=== PATIENT | male | born 1975 | race American Indian/Alaskan Native ===

== ENCOUNTER 2018-05-24 08:45 | Emergency (ER) | payer OTHER ==
[2018-05-24] MEDS ORDERED: ZOFRAN IV ONE (09:39)
[2018-05-24] MEDS ORDERED: TORADOL IV ONE (09:39)
[2018-05-24] MEDS ORDERED: NACL 0.9% 1000 ML 1,000 ML IV ONE (09:39)
[2018-05-24 10:02] LABS: Basophils # (Auto) 0.1 K/mm3 (0.0-0.1); Basophils % (Auto) 0.6 % (0.0-1.8); Eosinophils # (Auto) 0.1 K/mm3 (0.0-0.4); Eosinophils % (Auto) 0.8 % (0.0-4.3); Hematocrit 48.8 % (30.3-42.9); Hemoglobin 15.9 gm/dl (10.1-14.3); Lymphocytes # (Auto) 1.9 K/mm3 (1.2-5.4); Mean Corpuscular HGB Conc 33 % (30-34); Mean Corpuscular Volume 84 fl (79-97); Monocytes # (Auto) 0.9 K/mm3 (0.0-0.8); Monocytes % (Auto) 7.2 % (0.0-7.3); Platelet Count 256 K/mm3 (140-440); Red Blood Count 5.78 M/mm3 (3.65-5.03); Red Cell Distribution Width 14.7 % (13.2-15.2)
[2018-05-24 10:15] LABS: Alanine Aminotransferase 51 units/L (7-56); Albumin 4.2 g/dL (3.9-5); BUN/Creatinine Ratio 10; Blood Urea Nitrogen 8 mg/dL (7-17); Calcium 9.7 mg/dL (8.4-10.2); Hemolysis Index 15
--- NOTE | 2018-05-24 10:24 | Emergency Department Report ---
ED Male HPI - General Chief complaint: Abdominal Pain Stated complaint: RIGHT SIDE PAIN Time Seen by Provider: 05/24/18 09:34 Source: patient, old records reviewed (no previous medical record) Mode of arrival: Ambulatory Limitations: No Limitations - History of Present Illness Initial comments: 43-year-old male with a past medical history of kidney stones before and lithotripsy and possible stenting 4 years ago presents to the hospital with complaints of right-sided flank pain with nausea 2 days. 2 days ago patient noticed hematuria which has since resolved. He continues to have constant aching, sharp, and stabbing right flank pain as with movement and palpation. Pain is rated moderate to severe in intensity. No alleviating factors reported. Positive nausea without vomiting, fever, or dysuria. Similar symptoms with kidney stone in the past. He Does not currently have a urologist - Related Data Previous Rx's Medication Instructions Recorded Last Taken Type HYDROcodone/APAP 5-325 [[place] 1 each PO Q6HR PRN #20 tablet 05/24/18 Unknown Rx 5/325] Ibuprofen [Motrin] 800 mg PO Q8HR PRN #30 tablet 05/24/18 Unknown Rx Promethazine [Phenergan TAB] 25 mg PO Q6HR PRN #20 tab 05/24/18 Unknown Rx levoFLOXacin [Levaquin] 750 mg PO QDAY #7 tablet 05/24/18 Unknown Rx Allergies Allergy/AdvReac Type Severity Reaction Status Date / Time Sulfa (Sulfonamide Allergy Hives Verified 05/24/18 08:52 Antibiotics) ED Review of Systems ROS: Stated complaint: RIGHT SIDE PAIN Other details as noted in HPI Comment: All other systems reviewed and negative ED Past Medical Hx - Past Medical History Previous Medical History?: Yes Additional medical history: Hx of kidney stones. - Surgical History Past Surgical History?: No - Social History Smoking Status: Current Every Day Smoker - Medications Home Medications: Home Medications Medication Instructions Recorded Confirmed Last Taken Type HYDROcodone/APAP 5-325 [[place] 1 each PO Q6HR PRN #20 tablet 05/24/18 Unknown Rx 5/325] Ibuprofen [Motrin] 800 mg PO Q8HR PRN #30 tablet 05/24/18 Unknown Rx Promethazine [Phenergan TAB] 25 mg PO Q6HR PRN #20 tab 05/24/18 Unknown Rx levoFLOXacin [Levaquin] 750 mg PO QDAY #7 tablet 05/24/18 Unknown Rx ED Physical Exam - General Limitations: No Limitations - Other Other exam information: General: No limitations, patient is alert in no acute distress Head exam: Atraumatic, normocephalic Eyes exam: Normal appearance ENT: Moist mucous membrane, normal oropharynx Neck exam: Normal inspection, full range of motion, no meningismus nontender Respiratory exam: Clear to auscultation bilateral, no wheezes, rales, crackles Cardiovascular: Normal rate and rhythm, normal heart sounds Abdomen: Soft, nondistended, right sided abdominal tenderness, with normal bowel sounds, no rebound, or guarding Extremity: Full range of motion normal inspection no deformity Back: Normal Inspection, full range of motion, right CVA tenderness Neurologic: Alert, oriented x3, cranial nerves intact, no motor or sensory deficit Psychiatric: normal affect, normal mood Skin: Warm, dry, intact ED Course Vital Signs 05/24/18 05/24/18 08:53 11:56 Temperature 98.4 F Pulse Rate 70 Respiratory 18 18 Rate Blood Pressure 134/77 O2 Sat by Pulse 100 Oximetry - Reevaluation(s) Reevaluation #1: 05/24/18 11:41 Patient passed a 9 mm stone in the ED with urination. Initial [place] requests for urology consultation canceled as patient passed stone identified on CT. 05/24/18 14:39 Patient comfortable with no vomiting or pain. ED Medical Decision Making - Lab Data Result diagrams: 05/24/18 09:42 05/24/18 09:42 Lab Results 05/24/18 05/24/18 05/24/18 Range/Units 09:42 09:42 11:34 WBC 12.7 H (4.5-11.0) K/mm3 RBC 5.78 H (3.65-5.03) M/mm3 Hgb 15.9 H (10.1-14.3) gm/dl Hct 48.8 H (30.3-42.9) % MCV 84 (79-97) fl MCH 28 (28-32) pg MCHC 33 (30-34) % RDW 14.7 (13.2-15.2) % Plt Count 256 (140-440) K/mm3 Lymph % (Auto) 15.0 (13.4-35.0) % Peach % (Auto) 7.2 (0.0-7.3) % Eos % (Auto) 0.8 (0.0-4.3) % Baso % (Auto) 0.6 (0.0-1.8) % Lymph # 1.9 (1.2-5.4) K/mm3 Peach # 0.9 H (0.0-0.8) K/mm3 Eos # 0.1 (0.0-0.4) K/mm3 Baso # 0.1 (0.0-0.1) K/mm3 Seg Neutrophils % 76.4 H (40.0-70.0) % Seg Neutrophils # 9.7 H (1.8-7.7) K/mm3 Sodium 138 (137-145) mmol/L Potassium 4.0 (3.6-5.0) mmol/L Chloride 98.5 (98-107) mmol/L Carbon Dioxide 25 (22-30) mmol/L Anion Gap 19 mmol/L BUN 8 (7-17) mg/dL Creatinine 0.8 (0.7-1.2) mg/dL Estimated GFR > 60 ml/min BUN/Creatinine Ratio 10 % Glucose 174 H (65-100) mg/dL Calcium 9.7 (8.4-10.2) mg/dL Total Bilirubin 0.20 (0.1-1.2) mg/dL AST 29 (5-40) units/L ALT 51 (7-56) units/L Alkaline Phosphatase 68 (35-129) units/L Total Protein 7.5 (6.3-8.2) g/dL Albumin 4.2 (3.9-5) g/dL Albumin/Globulin Ratio 1.3 % Lipase 24 (13-60) units/L Urine Color Red (Yellow) Urine Turbidity Slightly-cloudy (Clear) Urine pH 7.0 (5.0-7.0) Ur Specific Carrier 1.008 (1.003-1.030) Urine Protein 30 mg/dl (Negative) mg/dL Urine Glucose (UA) Neg (Negative) mg/dL Urine Ketones Neg (Negative) mg/dL Urine Blood Lg (Negative) Urine Nitrite Neg (Negative) Urine Bilirubin Neg (Negative) Urine Urobilinogen < 2.0 (<2.0) mg/dL Ur Leukocyte Esterase Sm (Negative) Urine WBC (Auto) 144.0 H (0.0-6.0) /HPF Urine RBC (Auto) > 182.0 (0.0-6.0) /HPF Urine Mucus Few /HPF Urine Yeast (Budding) 3+ /HPF - Radiology Data Radiology results: report reviewed CT ABDOMEN PELVIS WITHOUT CONTRAST: HISTORY: Right flank pain, hematuria. COMPARISON: none. TECHNIQUE: Helical CT in 1.25mm intervals without IV contrast. Sagittal and coronal reconstructions. FINDINGS: Lung bases: Normal. Liver: Moderate diffuse fatty infiltration of the liver is identified. Biliary system: Normal. Pancreas: Normal. Spleen: Normal. Kidneys/ureters/bladder: Bilateral renal stones are identified. A 5 mm stone is noted in the mid left kidney. A 9 mm stone is noted in the superior right kidney. There is moderate right hydronephrosis. A 9 x 9 x 8 mm distal right ureteral stone is identified. Normal bladder. Adrenal glands: Normal. Aorta: Normal. Intestines: Normal. Appendix: Normal. Pelvic viscera: Normal. Ascites: None. Adenopathy: None. Musculoskeletal: Intact. IMPRESSION: Bilateral renal stones. Distal right ureteral stone, moderately obstructing. See above. Fatty infiltration of the liver. AP ABDOMEN: HISTORY: Kidney stone passed in the ED. The abdominal gas pattern is unremarkable. No masses or organomegaly is identified and there is no gross evidence of free air or fluid. An approximate 1.4 cm calcification overlies the superior pole of the right kidney. An approximate 1 cm calcification overlies the mid left kidney. No obvious calcifications overlying the course of the ureters. IMPRESSION: Bilateral nephrolithiasis as described. - Medical Decision Making X-ray was performed after patient passed a 9 cm stone. It does not reveal a ureteral stone but there are persistent renal stones as identified on CT. Patient will be discharged home with urology follow-up since he appears to passed stone in the ED. He'll be covered with pain medication and antibiotics. He was treated with Toradol, Dilaudid, Zofran, normal saline, and Rocephin IV in the ED. Kidney stone sent to lab for stone analysis. - Differential Diagnosis UTI, pyelonephritis, renal colic, appendicitis, biliary colic Critical Care Time: No Critical care attestation.: If time is entered above; I have spent that time in minutes in the direct care of this critically ill patient, excluding procedure time. ED Disposition Clinical Impression: Renal colic on right side, Nephrolithiasis, UTI (urinary tract infection) Disposition: DC- TO HOME OR SELFCARE Is pt being admited?: No Does the pt Need Aspirin: No Condition: Stable Instructions: Renal Colic (ED), Urinary Tract Infection in Men (ED) Additional Instructions: Take the medication as prescribed. Follow up with your doctor or the clinic/doctor provided. Follow-up with the urologist. Return if symptoms worsen as indicated by your discharge instructions. Your kidney stone was sent to the lab for stone analysis. Prescriptions: levoFLOXacin [Levaquin] 750 mg PO QDAY #7 tablet Ibuprofen [Motrin] 800 mg PO Q8HR PRN #30 tablet PRN Reason: Pain, Moderate (4-6) HYDROcodone/APAP 5-325 [[place] 5/325] 1 each PO Q6HR PRN #20 tablet PRN Reason: Pain , Severe (7-10) Promethazine [Phenergan TAB] 25 mg PO Q6HR PRN #20 tab PRN Reason: Nausea [facility] Care Provider[facility] - 3-5 Days BRUCE KELLEY MD [Staff Physician] - 3-5 Days (Neurologist) Time of Disposition: 14:28
[2018-05-24] MEDS ORDERED: DILAUDID IV ONE (11:47)
[2018-05-24 11:54] LABS: Bilirubin,Urine NEG (Negative); Blood,Urine LG (Negative); Color,Urine Red (Yellow); Mucus,Urine FEW /HPF; RBC,Urine > 182.0 /HPF (0.0-6.0); Urobilinogen,Urine < 2.0 mg/dL (<2.0)
[2018-05-24] MEDS ORDERED: ROCEPHIN/NS 1 GM/50 ML 1 GM/50 ML BAG IV ONE (12:06)
--- NOTE | 2018-05-24 13:48 | XRay Report ---
AP ABDOMEN: HISTORY: Kidney stone passed in the ED. The abdominal gas pattern is unremarkable. No masses or organomegaly is identified and there is no gross evidence of free air or fluid. An approximate 1.4 cm calcification overlies the superior pole of the right kidney. An approximate 1 cm calcification overlies the mid left kidney. No obvious calcifications overlying the course of the ureters. IMPRESSION: Bilateral nephrolithiasis as described.
[2018-05-24 14:36] VITALS: BP 152/94
== END 2018-05-24 15:00 | disposition home or self-care (01) ==
LOC: EDSEX 08:45 → ED 08:45
DX: N20.0 Calculus of kidney (principal); N23 Unspecified renal colic; N39.0 Urinary tract infection, site not specified; F17.200 Nicotine dependence, unspecified, uncomplicated; Z88.2 Allergy status to sulfonamides
CPT/HCPCS: 36415; 74018; 74176; 80053; 81001; 82365; 83690; 85025; 96361; 96365; 96375; 99284; J0696; J1170; J1885; J2405; J7030